=== PATIENT | female | born 1945 | race Caucasian/White ===

== ENCOUNTER 2017-05-07 20:30 | Inpatient (IN) | payer MEDICARE, OTHER ==
[~2017-05-07] VITALS: Ht 157.5 cm; Wt 87.5 kg
[2017-05-07] MEDS ORDERED: MORPHINE SULFATE INJ 2 MG/ML DISP.SYRIN IV ONE (21:00)
[2017-05-07] MEDS ORDERED: IV NS 0.9% 1,000 ML BAG IV ONE (21:00)
[2017-05-07] MEDS ORDERED: ONDANSETRON HCL/PF 4 MG/2 ML VIAL IVP ONE (21:00)
[2017-05-07 21:13] LABS: BASOPHILS # (AUTO) 0.2 /CMM (0.0-0.2); BASOPHILS % (AUTO) 2.4 % (0.0-2.0); EOSINOPHILS # (AUTO) 0.1 /CMM (0.0-0.7); EOSINOPHILS % (AUTO) 2.3 % (0.0-6.0); HEMATOCRIT 34 % (33-45); HEMOGLOBIN 11.6 g/dL (11.5-14.8); LYMPHOCYTES % (AUTO) 30.5 % (20.0-44.0); MEAN CORPUSCULAR HEMOGLOBIN 29 PG (26.0-33.0); MEAN CORPUSCULAR HGB CONC 34 g/dl (31.0-36.0); MEAN CORPUSCULAR VOLUME 86 fL (82-100); MONOCYTES # (AUTO) 0.6 /CMM (0.1-1.30); MONOCYTES % (AUTO) 8.6 % (2.0-12.0); NEUTROPHILS # (AUTO) 3.5 /CMM (1.8-8.9); NEUTROPHILS % (AUTO) 56.2 % (43.0-81.0); PLATELET COUNT (AUTO) 298 /CMM (150-450); RDW COEFFICIENT OF VARIATION 13.7 (11.5-15.0); WHITE BLOOD COUNT (AUTO) 6.4 K/uL (4.3-11.0)
[2017-05-07] MEDS ORDERED: MORPHINE SULFATE INJ 4 MG/ML DISP.SYRIN ONE (21:23)
[2017-05-07] MEDS ORDERED: ONDANSETRON HCL/PF 4 MG/2 ML VIAL ONE (21:23)
[2017-05-07 21:24] LABS: CARBON DIOXIDE 29 mmol/L (21-32); CHLORIDE 106 mmol/L (98-107); CREATININE 1.1 mg/dL (0.6-1.3); GLUCOSE 122 mg/dL (74-106); POTASSIUM 4.6 mmol/L (3.5-5.1); SODIUM SERUM 139 mmol/L (136-145); UREA NITROGEN, BLOOD 32 mg/dL (7-18)
[2017-05-07 21:31] LABS: ALANINE AMINOTRANSFERASE 8 U/L (12-78); ALBUMIN 3.5 g/dL (3.4-5.0); ALKALINE PHOSPHATASE 75 U/L (46-116); ASPARTATE AMINOTRANSFERASE 17 U/L (15-37); BILIRUBIN,TOTAL 0.3 mg/dL (0.2-1.0); LIPASE 167 U/L (73-393); TOTAL PROTEIN, SERUM 7.8 g/dL (6.4-8.2)
[2017-05-07 21:32] LABS: TROPONIN I < 0.017 ng/mL (0.00-0.056)
[2017-05-07 22:22] LABS: APPEARANCE,URINE CLEAR (CLEAR); BILIRUBIN,URINE 1+ (NEGATIVE); BLOOD, URINE NEGATIVE Ery/uL (NEGATIVE); COLOR,URINE ORANGE (YELLOW); KETONES,URINE TRACE (NEGATIVE); LEUKOCYTE ESTERASE ,URINE TRACE (NEGATIVE); NITRITE, URINE NEGATIVE (NEGATIVE); PROTEIN,URINE TRACE mg/dl (NEGATIVE); UGLUCOSE NEGATIVE (NEGATIVE)
[2017-05-07 22:48] LABS: BACTERIA,URINE None seen /HPF (None Seen); MUCUS,URINE Moderate /LPF (None Seen); RBC,URINE 0-2 /HPF (0-2); SQUAMOUS EPITHELIAL CELL,UR Moderate /HPF (None Seen)
[2017-05-07] MEDS ORDERED: METRONIDAZOLE 500MG/ NS 100ML 100 ML IV ONE (23:24)
[2017-05-07] MEDS ORDERED: CIPROFLOXACIN IV RTU 200 ML IV ONE (23:24)
[2017-05-07] MEDS ORDERED: FLAGYL/NS RTU 500 MG/100 ML PIGGYBACK IV ONE (23:30)
[2017-05-08] MEDS: CIPROFLOXACIN IV RTU 400 MG in PREMIX 1 EA IV SCH ×4 (00:12→15:48)
[2017-05-08 00:30] VITALS: BP 160/75
[2017-05-08] MEDS ORDERED: METR500T4 PO (01:15)
[2017-05-08] MEDS ORDERED: DIVA500T54 PO (01:15)
[2017-05-08] MEDS ORDERED: LOSA100T15 PO (01:15)
[2017-05-08] MEDS ORDERED: OMEP20CA10 PO (01:15)
[2017-05-08] MEDS ORDERED: CIPR-262 PO (01:15)
[2017-05-08] MEDS ORDERED: MAGNESIUM HYDROXIDE 30 ML UDC PO PRN (01:30)
[2017-05-08] MEDS ORDERED: ENOXAPARIN SODIUM 40 MG/0.4 ML DISP.SYRIN SQ SCH ×2 (01:30→21:00)
[2017-05-08] MEDS ORDERED: ONDANSETRON HCL/PF 4 MG/2 ML VIAL IVP PRN (01:30)
[2017-05-08] MEDS ORDERED: Z GUARD REMEDY 2 OZ OINT TP PRN (01:30)
[2017-05-08] MEDS ORDERED: MORPHINE SULFATE INJ 2 MG/ML DISP.SYRIN IV PRN (01:30)
[2017-05-08] MEDS ORDERED: HYDROCODONE/APAP 5/325MG 1 EACH TABLET PO PRN (01:30)
[2017-05-08] MEDS ORDERED: ACETAMINOPHEN 325 MG TABLET PO PRN (01:30)
[2017-05-08] MEDS ORDERED: MAG HYDROX/AL HYDROX/SIMETH 30 ML UDC PO PRN (01:30)
[2017-05-08] MEDS ORDERED: ZOLPIDEM TARTRATE 5 MG TABLET PO PRN (01:30)
[2017-05-08] MEDS ORDERED: ENOXAPARIN SODIUM 40 MG/0.4 ML DISP.SYRIN SQ ONE (01:57)
[2017-05-08] MEDS: IV NS 0.9% 1,000 ML IV PRN ×2 (02:06→22:45)
[2017-05-08] MEDS ORDERED: METRONIDAZOLE 500MG/ NS 100ML 100 ML IV ONE (05:03)
[2017-05-08] MEDS: METRONIDAZOLE 500MG/ NS 100ML 500 MG in PREMIX 1 EA IV SCH ×3 (05:21→18:10)
[2017-05-08 05:30] VITALS: BP 134/64
[2017-05-08 08:00] VITALS: BP 149/74
[2017-05-08] MEDS: DIVALPROEX SODIUM 500 MG TABLET.DR PO SCH ×3 (09:40→18:10)
[2017-05-08] MEDS: LOSARTAN POTASSIUM 50 MG TABLET PO SCH (09:41)
[2017-05-08] MEDS: MORPHINE SULFATE INJ 4 MG/ML DISP.SYRIN IV PRN ×3 (14:06→22:39)
[2017-05-08 16:00] VITALS: BP 122/55
[2017-05-08 20:00] VITALS: BP 135/69
[2017-05-09] MEDS: METRONIDAZOLE 500MG/ NS 100ML 500 MG in PREMIX 1 EA IV SCH ×3 (00:32→12:00)
[2017-05-09] MEDS: CIPROFLOXACIN IV RTU 400 MG in PREMIX 1 EA IV SCH (01:01)
[2017-05-09 07:37] LABS: BASOPHILS % (AUTO) 0.5 % (0.0-2.0); EOSINOPHILS # (AUTO) 0.1 /CMM (0.0-0.7); EOSINOPHILS % (AUTO) 2.1 % (0.0-6.0); HEMATOCRIT 29 % (33-45); LYMPHOCYTES # (AUTO) 1.5 /CMM (0.8-4.8); LYMPHOCYTES % (AUTO) 37.7 % (20.0-44.0); MEAN CORPUSCULAR HEMOGLOBIN 30 PG (26.0-33.0); MEAN CORPUSCULAR HGB CONC 34 g/dl (31.0-36.0); MEAN CORPUSCULAR VOLUME 87 fL (82-100); MONOCYTES # (AUTO) 0.3 /CMM (0.1-1.30); MONOCYTES % (AUTO) 7.5 % (2.0-12.0); NEUTROPHILS % (AUTO) 52.2 % (43.0-81.0); PLATELET COUNT (AUTO) 230 /CMM (150-450); RDW COEFFICIENT OF VARIATION 14.6 (11.5-15.0); RED BLOOD CELL COUNT(AUTO) 3.34 MIL/uL (4.0-5.2); RETICULOCYTE COUNT 1.6 % (0.6-2.5); WHITE BLOOD COUNT (AUTO) 3.9 K/uL (4.3-11.0)
[2017-05-09 07:49] LABS: INR 0.95 (0.87-1.13); PROTHROMBIN TIME 9.9 SECS (9.5-12.7)
[2017-05-09 07:55] LABS: ALANINE AMINOTRANSFERASE 32 U/L (12-78); ALBUMIN 2.8 g/dL (3.4-5.0); ALKALINE PHOSPHATASE 135 U/L (46-116); AMYLASE 26 U/L (25-115); ASPARTATE AMINOTRANSFERASE 63 U/L (15-37); BILIRUBIN,DIRECT 0.1 mg/dL (0.0-0.2); BILIRUBIN,TOTAL 0.2 mg/dL (0.2-1.0); CALCIUM, SERUM 8.5 mg/dL (8.5-10.1); CARBON DIOXIDE 25 mmol/L (21-32); CHLORIDE 105 mmol/L (98-107); CREATININE 0.8 mg/dL (0.6-1.3); GLUCOSE 122 mg/dL (74-106); LIPASE 113 U/L (73-393); MAGNESIUM 1.7 mg/dL (1.8-2.4); POTASSIUM 4.9 mmol/L (3.5-5.1); SODIUM SERUM 137 mmol/L (136-145); TOTAL PROTEIN, SERUM 6.6 g/dL (6.4-8.2); UREA NITROGEN, BLOOD 27 mg/dL (7-18)
[2017-05-09 07:58] LABS: CHOLESTEROL 152 mg/dL (<200); HDL CHOLESTEROL 67 mg/dL (40-60); LDL 73 mg/dL (0-99); PREALBUMIN 20.2 MG/DL (18.0-35.7); THYROID STIMULATING HORMONE 2.962 uIU/mL (0.358-3.74); TRIGLYCERIDES 46 mg/dL (30-150)
[2017-05-09 08:00] VITALS: BP 134/58
[2017-05-09 08:26] LABS: IRON, SERUM 50 ug/dl (50-175); TOTAL IRON BINDING CAPACITY 306 ug/dl (250-450)
[2017-05-09 09:07] VITALS: BP 124/60
[2017-05-09] MEDS: LOSARTAN POTASSIUM 50 MG TABLET PO SCH (09:07)
[2017-05-09] MEDS: DIVALPROEX SODIUM 500 MG TABLET.DR PO SCH ×2 (09:07→13:30)
[2017-05-09] MEDS ORDERED: ONDA4TAB5 PO (10:31)
[2017-05-09] MEDS ORDERED: HYDR-552 PO (10:31)
[2017-05-09] MEDS: Magnesium 1GM/D5W 100ML PREMIX 100 ML IV SCH ×2 (10:35→12:10)
== END 2017-05-09 14:30 | disposition home or self-care (01) | DRG 392 ==
LOC: ER 20:31 → MED 05-08 01:12
PROVIDERS: ADMIT Internal Medicine; ATTEND Internal Medicine
DX: K57.32 Diverticulitis of large intestine without perforation or abscess without bleeding (principal); E44.0 Moderate protein-calorie malnutrition; G40.909 Epilepsy, unspecified, not intractable, without status epilepticus; Z79.899 Other long term (current) drug therapy; Z90.49 Acquired absence of other specified parts of digestive tract; I10 Essential (primary) hypertension; K76.0 Fatty (change of) liver, not elsewhere classified; E66.9 Obesity, unspecified; Z68.35 Body mass index [BMI] 35.0-35.9, adult
CPT/HCPCS: 36415; 71045-TC; 80048-TC; 80053-TC; 80061-TC; 80076-TC; 81000-TC; 82150-TC; 82746; 83540-TC; 83690-TC; 83735-TC; 84100-TC; 84134-TC; 84443-TC; 84484-TC; 85025-TC; 85045-TC; 85652-TC; 85730-TC; 87081-TC; 87086-TC; A4216; A4606; J0744; J1650; J2270; J2405; J3475; J3490; J7030; Z7610

== ENCOUNTER 2018-05-02 13:55 | Outpatient (CLI) | payer MEDICARE, OTHER ==
[~2018-05-02 13:55] MED LIST: CIPR-262 PO; DIVA500T54 PO; HYDR-4384 PO; LOSA100T31 PO; METR-147 PO; OMEP20CA10 PO; ONDA4TAB5 PO
== END 2018-05-02 23:59 ==
LOC: WOU 13:55
PROVIDERS: ATTEND Surgery
DX: L03.311 Cellulitis of abdominal wall (principal); Z93.2 Ileostomy status; E66.09 Other obesity due to excess calories; Z68.28 Body mass index [BMI] 28.0-28.9, adult; R73.03 Prediabetes; I11.0 Hypertensive heart disease with heart failure; I50.9 Heart failure, unspecified; Z87.891 Personal history of nicotine dependence; G40.909 Epilepsy, unspecified, not intractable, without status epilepticus
CPT/HCPCS: A6402; G0463

== ENCOUNTER 2018-05-13 10:55 | Outpatient (CLI) | payer MEDICARE, OTHER ==
[2018-05-13] MEDS ORDERED: IOHEXOL-300 100 ML VIAL IV ONE (13:52)
[2018-05-13] MEDS ORDERED: DIATR MEGLU/DIATRIZOATE SODIUM 30 ML BOTTLE (GASTROGRAPHIN) ONE (13:53)
[2018-05-13] MEDS ORDERED: CT SWABBABLE VALVE TRANS SET 1 EA INFUS.SET MC ONE (13:53)
[2018-05-13] MEDS ORDERED: IV NS 0.9% 250 ML IV ONE (13:53)
== END 2018-05-13 23:59 | disposition home or self-care (01) ==
LOC: CT 10:55
PROVIDERS: ATTEND Internal Medicine
DX: K91.89 Other postprocedural complications and disorders of digestive system (principal); N20.0 Calculus of kidney; I70.0 Atherosclerosis of aorta; Z98.890 Other specified postprocedural states; Z90.49 Acquired absence of other specified parts of digestive tract
CPT/HCPCS: 74177; J7050; Q9967; Q9963